=== PATIENT | male | born 1990 | race Caucasian/White ===

== ENCOUNTER 2019-09-05 09:00 | Emergency (ER) | payer OTHER, MEDICAID ==
[~2019-09-05] VITALS: Ht 177.8 cm; Wt 68.0 kg
[2019-09-05] MEDS ORDERED: HYDROCODONE/ACETAMINOPHEN 5/325MG TABLET PO ONE (09:45)
[2019-09-05 09:47] VITALS: BP 125/77
[2019-09-05] MEDS ORDERED: AMOXICILLIN 500 MG CAPSULE PO ONE (10:15)
== END 2019-09-05 10:27 | disposition home or self-care (01) ==
LOC: ER 09:00
DX: H66.92 Otitis media, unspecified, left ear (principal); J32.9 Chronic sinusitis, unspecified; F17.200 Nicotine dependence, unspecified, uncomplicated
CPT/HCPCS: 99283